=== PATIENT | female | born 1955 | race Caucasian/White ===

== ENCOUNTER → 2024-09-29 | Outpatient (CLI) | payer MEDICARE, BC | LOC: M RAD 14:10 | PROVIDERS: ATTEND Nurse Practitioner Family | DX: E03.9 Hypothyroidism, unspecified (principal); E04.1 Nontoxic single thyroid nodule ==

== ENCOUNTER → 2025-03-23 | Outpatient (CLI) | payer MEDICARE, BC | LOC: M RAD 11:17 | PROVIDERS: ATTEND Urology | DX: C64.2 Malignant neoplasm of left kidney, except renal pelvis (principal); I70.0 Atherosclerosis of aorta ==